=== PATIENT | female | born 1965 | race American Indian/Alaskan Native ===

== ENCOUNTER 2016-04-15 09:57 | Emergency (ER) | payer BC ==
[2016-04-15 10:23] VITALS: BP 150/78
--- NOTE | 2016-04-15 10:55 | Emergency Department Report ---
Chief Complaint: Abdominal Pain Stated Complaint: MUSCLE SPASMS Time Seen by Provider: 04/15/16 10:50 - HPI History of Present Illness: 51-year-old female comes in for complaint of muscle spasms in her right rib cage area since last night. Patient reports that she was seen by a clinician for [employer] issues and as she got home late down he doesn't know what happened but she woke up with these muscle spasms in her right rib cage. She feels that it was gas but this is not moving so she is here to be evaluated. Patient does report it is worse when she inhales and better with exhaling. Nausea trauma to her her right side. She denies any chest pain. - Exam Vital Signs: Vital Signs 04/15/16 10:18 Temperature 99.2 F Pulse Rate 87 Respiratory 24 Rate Blood Pressure 150/78 O2 Sat by Pulse 96 Oximetry Physical Exam: He is alert and 3 cardiovascular S1-S2 noted a murmur. Abdomen soft nontender negative Brown sign. Respiratory to difficult for her to take a deep breath deferred. MSE screening note: Focused history and physical exam performed. Due to findings the following was ordered: CBC BMP troponin lipase evaluate the main ER ED Disposition for MSE Condition: Stable Instructions: Abdominal Pain (ED)
[2016-04-15 11:20] LABS: Hematocrit 40.2 % (30.3-42.9); Hemoglobin 12.5 gm/dl (10.1-14.3); Mean Corpuscular HGB Conc 31 % (30-34); Mean Corpuscular Volume 82 fl (79-97); Platelet Count 231 K/mm3 (140-440); Red Blood Count 4.88 M/mm3 (3.65-5.03); Red Cell Distribution Width 17.9 % (13.2-15.2); White Blood Count 9.1 K/mm3 (4.5-11.0)
[2016-04-15 11:25] LABS: Mean Corpuscular Hemoglobin 26 pg (28-32)
[2016-04-15 11:35] LABS: Blood Urea Nitrogen 10 mg/dL (7-17); Carbon Dioxide 26 mmol/L (22-30); Chloride 98.4 mmol/L (98-107); Glucose 114 mg/dL (65-100); Lipase 10 units/L (13-60); Potassium 4.1 mmol/L (3.6-5.0); Sodium 138 mmol/L (137-145)
[2016-04-15 11:40] LABS: Anion Gap 18 mmol/L
--- NOTE | 2016-04-15 12:12 | XRay Report ---
ROUTINE CHEST, TWO VIEWS: HISTORY: chest pain. There is poor inspiration. Mild segmental atelectasis is suspected at the left lung base. Otherwise, the lungs are clear. No evidence for infiltrate, mass, pleural effusion or pneumothorax. Normal heart and mediastinal structures. Normal bony thorax. IMPRESSION: Poor inspiration with segmental atelectasis of the left lung base. Otherwise, unremarkable chest films.
[2016-04-15 12:27] LABS: Bacteria,Urine 1+ /HPF (Negative); Bilirubin,Urine NEG (Negative); Blood,Urine MOD (Negative); Ketones,Urine NEG (Negative); Leukocyte Esterase,Urine TR (Negative); Mucus,Urine 2+ /HPF; Nitrite,Urine NEG (Negative); Urobilinogen,Urine < 2.0 mg/dL (<2.0)
--- NOTE | 2016-04-18 01:19 | ED Elopement Review ---
ED Pt Elopement review - Results review Lab results: Laboratory Tests 04/15/16 04/15/16 04/15/16 11:10 11:10 Unknown WBC 9.1 RBC 4.88 Hgb 12.5 Hct 40.2 MCV 82 MCH 26 L MCHC 31 RDW 17.9 H Plt Count 231 Sodium 138 Potassium 4.1 Chloride 98.4 Carbon Dioxide 26 Anion Gap 18 BUN 10 Creatinine 1.0 Estimated GFR > 60 BUN/Creatinine Ratio 10.00 Glucose 114 H Calcium 9.0 Lipase 10 L Urine Color Hannah Urine Turbidity Slightly-cloudy Urine pH 5.0 Ur Specific [place] 1.028 Urine Protein 100 mg/dl Urine Glucose (UA) Neg Urine Ketones Neg Urine Blood Mod Urine Nitrite Neg Urine Bilirubin Neg Urine Urobilinogen < 2.0 Ur Leukocyte Esterase Tr Urine WBC (Auto) 8.0 H Urine RBC (Auto) 20.0 U Epithel Cells (Auto) 19.0 H Urine Bacteria (Auto) 1+ Urine Mucus 2+ - Call Back decision Pt Call Back Decision: No action required
== END 2016-04-15 19:50 | disposition left against medical advice (07) ==
LOC: ED 09:57
DX: M62.838 Other muscle spasm (principal); Z53.21 Procedure and treatment not carried out due to patient leaving prior to being seen by health care provider
CPT/HCPCS: 36415; 71020; 80048; 81001; 83690; 85027; 93005; 93010

== ENCOUNTER 2016-10-20 11:09 | Outpatient (CLI) | payer BC ==
--- NOTE | 2016-10-20 16:29 | Cat Scan Report ---
CT CHEST, ABDOMEN AND PELVIS WITH CONTRAST: 10/20/16 CLINICAL: Carcinoid followup. COMPARISON: 05/20/16 TECHNIQUE: Volumetric acquisition and 1.25 millimeter scan reconstructions after the uneventful intravenous injection of 100 cc of Omnipaque 300. Consent was obtained prior to the administration of the contrast. Oral contrast was also given. FINDINGS: Chest: The lungs are clear except for a band of right lower lobe subsegmental atelectasis. No airspace disease or pleural effusion. No pulmonary nodule or mass. Normal aorta, heart and pulmonary arteries. Normal esophagus and trachea. No mediastinal or hilar lymphadenopathy.No axillary or supraclavicular lymphadenopathy. Abdomen: Too numerous to count hypodense hepatic masses have decreased in size compared to the prior exam and demonstrate less peripheral enhancement. The gallbladder and bile ducts are normal. Normal stomach, duodenum, pancreas and spleen. Stable mild right hydronephrosis and right hilar ureter. The left renal collecting system and ureter are normal. The kidneys are normal except for a 7 cm left upper pole renal cyst. Normal aorta and inferior vena cava. An irregular central mesenteric mass is quite subtle and is unchanged compared to the last exam. The mass is at the root of the small bowel mesentery and measures approximately 4.6 x 2.2 x 3.9 cm and is best appreciated on the coronal reformat.No ascites.Normal small bowel. Normal ascending, transverse and descending colon. Normal appendix. Pelvis: Normal urinary bladder, uterus and rectum. The previously described right perirectal lymph node is smaller and measures 1.7 x 1.4 x 1.3 cm. Normal ovaries. No adnexal mass or free fluid. Mild sigmoid diverticulosis and no signs of diverticulitis. Bone windows demonstrate no suspicious bone lesion. IMPRESSION:1. Right lower lobe subsegmental atelectasis and otherwise normal chest. 2. Decreased size and decreased enhancement of too numerous to count hepatic masses. 3. Stable 4.6 cm mass at the root of the small bowel mesentery. 4. A smaller right perirectal lymph node.
== END 2016-10-20 11:10 | disposition home or self-care (01) ==
LOC: SPVIMAG 11:09
PROVIDERS: ATTEND Internal Medicine Hematology & Oncology
DX: C80.1 Malignant (primary) neoplasm, unspecified (principal); N28.1 Cyst of kidney, acquired; K57.30 Diverticulosis of large intestine without perforation or abscess without bleeding; K76.89 Other specified diseases of liver; J98.11 Atelectasis; N13.30 Unspecified hydronephrosis; K63.89 Other specified diseases of intestine; Z87.891 Personal history of nicotine dependence
CPT/HCPCS: 71260; 74177; Q9967

== ENCOUNTER 2016-12-09 10:12 | Outpatient (CLI) | payer BC ==
--- NOTE | 2016-12-09 11:04 | Mammography Report ---
BILATERAL MAMMOGRAM: FINDINGS: There are scattered fibroglandular densities (approximately 25%-50% glandular). No mass, distortion, suspicious calcification, or skin change is seen. CAD was utilized. IMPRESSION: Negative mammogram. There is no mammographic evidence of malignancy. RECOMMENDATION: Follow-up per ACS guidelines. BI-RADS CATEGORY: 1 = Negative ACR BI-RADS MAMMOGRAPHIC CODES: 0 = Needs additional imaging evaluation; 1 = Negative; 2 = Benign; 3 = Probably benign; 4 = Suspicious; 5 = Malignant; 6 = Known biopsy-proven malignancy COMMENT: 1. Dense breast tissue, i.e., adenosis, fibrocystic changes, etc., may obscure an underlying neoplasm. 2. Approximately 10% of cancers are not detected with mammography. 3. A negative mammography report should not delay biopsy if a clinically suspicious mass is present. COMMENT: Patient follow-up letters are generated in [employer].
== END 2016-12-09 10:13 | disposition home or self-care (01) ==
LOC: MAMMO 10:12
PROVIDERS: ATTEND Internal Medicine Hematology & Oncology
DX: Z12.31 Encounter for screening mammogram for malignant neoplasm of breast (principal); I11.0 Hypertensive heart disease with heart failure; I50.9 Heart failure, unspecified
CPT/HCPCS: 77067; G0202

== ENCOUNTER 2017-01-06 08:33 | Outpatient (CLI) | payer BC ==
--- NOTE | 2017-01-06 16:15 | Cat Scan Report ---
CT CHEST, ABDOMEN AND PELVIS WITHOUT AND WITH CONTRAST: 01/06/17 08:33:00 CLINICAL: Carcinoid followup. COMPARISON: 10/20/16 TECHNIQUE: Volumetric acquisition and 1.25 millimeter scan reconstructions after the uneventful intravenous injection of cc of Omnipaque 300. Consent was obtained prior to the administration of the contrast. Oral contrast was given. FINDINGS: Chest: The lungs are clear. No pulmonary nodule or mass. Normal aorta, heart and pulmonary arteries. Normal esophagus and trachea. No mediastinal or hilar lymphadenopathy.No axillary or supraclavicular lymphadenopathy. Abdomen: Too numerous count hypodense right and left hepatic masses are stable and demonstrate no abnormal enhancement. No new lesions. Mass at the root of the small bowel mesentery is slightly smaller and measures 4.2 x 2.4 cm. No new mass. Normal gallbladder and bile ducts. Normal stomach, duodenum, pancreas and spleen. The renal collection systems and ureters are normal. Stable 7 cm left upper pole renal cyst. Normal aorta and inferior vena cava. No lymphadenopathy.No ascites.Normal small bowel. Normal ascending, transverse and descending colon. Pelvis: Normal urinary bladder and rectum.Normal uterus. Stable 1.7 x 1.4 cm right perirectal lymph node.. Bone windows demonstrate no suspicious bone lesion. IMPRESSION:1. Normal chest. 2. Stable hepatic lesions and no new hepatic lesions. 3. A slightly smaller mesenteric mass. 4. Stable right perirectal lymph node. 5. No new mass or lymphadenopathy.
== END 2017-01-06 08:34 | disposition home or self-care (01) ==
LOC: SPVIMAG 08:33
PROVIDERS: ATTEND Internal Medicine Hematology & Oncology
DX: C80.1 Malignant (primary) neoplasm, unspecified (principal); K76.89 Other specified diseases of liver; N28.1 Cyst of kidney, acquired
CPT/HCPCS: 71270; 74178; Q9967

== ENCOUNTER 2017-05-05 09:42 | Outpatient (CLI) | payer BC ==
[2017-05-05 12:05] LABS: Blood Urea Nitrogen 9 mg/dL (7-17)
--- NOTE | 2017-05-06 08:03 | Cat Scan Report ---
CT CHEST, ABDOMEN AND PELVIS WITH CONTRAST INDICATION: Metastatic carcinoid. COMPARISON: 01/06/[address] FINDINGS: Chest, abdomen and pelvis CT performed following oral contrast and intravenous administration of 100 cc of Omnipaque 300. CHEST: Stable, top normal heart size. No effusions or size significant adenopathy. Patent central airway. Grossly unremarkable great vessels and imaged thyroid. Coronary and mild aortic arch calcifications. Mild increased bibasilar atelectasis, right greater than left. No suspicious lung masses. Mild nonspecific distal esophageal wall prominence/thickening, not excluded for gastroesophageal reflux and/or hiatal hernia, amongst others. ABDOMEN: Liver again heterogeneous with diffuse metastases, more so the right hepatic lobe, including an approximately 4.1 x 2.3 cm right hepatic irregular hypodense area, axial series 2, image 357. No biliary dilatation. Approximately 6.7 cm partly exophytic left renal cyst again slightly displaces the left adrenal while the pancreatic tail drapes over it. Otherwise unremarkable pancreas, adrenals, spleen, gallbladder and the kidneys. Nonaneurysmal abdominal aorta with atherosclerotic aortoiliac calcifications. Grossly unremarkable IVC, though few retroperitoneal/paracaval lymph nodes noted as approximately 1 cm, axial image 444, series 2, previously the same. Largest chin hepatis lymph node again is approximately 3 x 2.2 cm, axial image 388, series 2. Elongated/bilobed mesenteric root mass is approximately 4 x 2.2 cm, axial image 49, series 2 and approximately 5.3 cm craniocaudal, coronal image 76, series 203. Few other small, subcentimeter mesenteric lymph nodes also noted. No ascites. Opacified GI tract nonobstructive. PELVIS: Mild rectosigmoid stool. Approximately 2 x 1.4 cm right pararectal lymph node mass is stable, axial image 603, series 2. Few small pelvic phleboliths. Grossly unremarkable uterus, adnexa/ovaries and the urinary bladder. No free fluid or significant adenopathy. Multilevel spinal degenerative changes as mid to lower thoracic and lumbar degenerative spurring and some disc degeneration. Right more than left shoulder degenerative changes as well. CONCLUSION: 1. Mild increased bibasilar atelectasis and few other incidental chest findings without CT evidence of intrathoracic metastatic disease. 2. Stable diffuse hepatic heterogeneity/metastatic involvement. 3. Stable mesenteric root mass/carcinoid tumor and chin hepatis, retroperitoneal and right pararectal lymphadenopathy, as described. 4. Various other incidental findings, including stable large left upper renal cyst and various bony degenerative changes, amongst others. Thank you for the opportunity to participate in this patient's care.
== END 2017-05-05 09:43 | disposition home or self-care (01) ==
LOC: CT 09:42 → SPVIMAG 09:42 → CT 09:43
PROVIDERS: ATTEND Internal Medicine Hematology & Oncology
DX: C7A.8 Other malignant neuroendocrine tumors (principal); C80.1 Malignant (primary) neoplasm, unspecified; K76.89 Other specified diseases of liver; I70.0 Atherosclerosis of aorta; I25.10 Atherosclerotic heart disease of native coronary artery without angina pectoris; J98.11 Atelectasis; N28.1 Cyst of kidney, acquired; I87.8 Other specified disorders of veins; M47.894 Other spondylosis, thoracic region; M53.86 Other specified dorsopathies, lumbar region; M19.011 Primary osteoarthritis, right shoulder; M19.012 Primary osteoarthritis, left shoulder; R59.1 Generalized enlarged lymph nodes
CPT/HCPCS: 36415; 71260; 74177; 82565; 84520; Q9967

== ENCOUNTER 2017-07-09 09:27 | Outpatient (CLI) | payer BC ==
[2017-07-09 10:00] LABS: Hematocrit 42.6 % (30.3-42.9); Hemoglobin 13.9 gm/dl (10.1-14.3); Mean Corpuscular HGB Conc 33 % (30-34); Mean Corpuscular Hemoglobin 27 pg (28-32); Mean Corpuscular Volume 83 fl (79-97); Platelet Count 245 K/mm3 (140-440); Red Blood Count 5.16 M/mm3 (3.65-5.03); Red Cell Distribution Width 18.3 % (13.2-15.2)
[2017-07-09 10:05] LABS: Alanine Aminotransferase 14 units/L (7-56); Albumin 3.3 g/dL (3.9-5); BUN/Creatinine Ratio 13; Blood Urea Nitrogen 12 mg/dL (7-17); Calcium 8.7 mg/dL (8.4-10.2); Hemolysis Index 19
[2017-07-09 10:39] LABS: Bilirubin,Urine NEG (Negative); Blood,Urine MOD (Negative); Color,Urine Yellow (Yellow); Mucus,Urine FEW /HPF; Urobilinogen,Urine < 2.0 mg/dL (<2.0)
== END 2017-07-09 09:28 | disposition home or self-care (01) ==
LOC: LAB 09:27
PROVIDERS: ATTEND Internal Medicine Nephrology
DX: N28.1 Cyst of kidney, acquired (principal); I11.0 Hypertensive heart disease with heart failure; I50.9 Heart failure, unspecified; E78.00 Pure hypercholesterolemia, unspecified; Z87.891 Personal history of nicotine dependence; Z79.899 Other long term (current) drug therapy
CPT/HCPCS: 36415; 80053; 81001; 85027

== ENCOUNTER 2017-08-05 10:01 | Outpatient (CLI) | payer BC ==
[2017-08-05 11:46] LABS: BUN/Creatinine Ratio 12; Blood Urea Nitrogen 12 mg/dL (7-17); Calcium 8.8 mg/dL (8.4-10.2); Hemolysis Index 19
== END 2017-08-05 10:02 | disposition home or self-care (01) ==
LOC: LAB 10:01
PROVIDERS: ATTEND Internal Medicine Nephrology
DX: N28.1 Cyst of kidney, acquired (principal); I11.0 Hypertensive heart disease with heart failure; I50.9 Heart failure, unspecified; E78.00 Pure hypercholesterolemia, unspecified; K21.9 Gastro-esophageal reflux disease without esophagitis; Z87.891 Personal history of nicotine dependence
CPT/HCPCS: 36415; 80048; 86021; 86038

== ENCOUNTER 2017-09-04 10:03 | Outpatient (CLI) | payer BC ==
[2017-09-04 10:51] LABS: Blood Urea Nitrogen 14 mg/dL (7-17)
--- NOTE | 2017-09-06 11:18 | Cat Scan Report ---
CT CHEST, ABDOMEN AND PELVIS WITH CONTRAST: 09/04/17 10:03:00 CLINICAL: Followup metastatic carcinoid. COMPARISON: 05/05/17 TECHNIQUE: Volumetric acquisition and 1.25 millimeter scan reconstructions after the uneventful intravenous injection of 100 cc of Omnipaque 300. Consent was obtained prior to the administration of the contrast. Oral contrast was also given. FINDINGS: Chest: No pulmonary nodule or mass. Stable right lower lobe parenchymal lung scar. No pleural effusion. Normal aorta, heart and pulmonary arteries. Normal esophagus and trachea. No mediastinal or hilar lymphadenopathy.No axillary or supraclavicular lymphadenopathy. Abdomen: A lymph node at the diaphragm measures 1.5 x 1.1 cm and is unchanged compared to previous exams. The liver is diffusely enlarged with too numerous to count hypodense masses which are not significantly changed compared to the last exam normal gallbladder and bile ducts. Normal stomach, duodenum, pancreas and spleen. A 7.0 cm left upper pole renal cyst and otherwise normal kidneys. Normal adrenal glands. Normal aorta and inferior vena cava. A stable chin hepatis lymph node measures 2.7 x 2.5 cm. The previously identified irregular mass of the mesenteric root is not significantly changed and measures approximately 4.1 x 2.6 x 0.9 cm. No new abdominal lymphadenopathy.No ascites.Normal small bowel. Normal ascending, transverse and descending colon. A normal relatively small appendix. Pelvis: Normal uterus, urinary bladder and rectum.Ovaries are small and unremarkable. No adnexal mass or free fluid. Bone windows demonstrate no suspicious bone lesion. IMPRESSION:Stable disease with no new findings.
== END 2017-09-04 10:04 | disposition home or self-care (01) ==
LOC: CT 10:03
PROVIDERS: ATTEND Internal Medicine Hematology & Oncology
DX: K76.89 Other specified diseases of liver (principal); C7A.8 Other malignant neuroendocrine tumors; C80.1 Malignant (primary) neoplasm, unspecified; R10.30 Lower abdominal pain, unspecified; Z87.891 Personal history of nicotine dependence
CPT/HCPCS: 36415; 71260; 74177; 82565; 84520; Q9967

== ENCOUNTER 2017-12-24 10:32 | Outpatient (CLI) | payer BC ==
[2017-12-24 11:18] LABS: Blood Urea Nitrogen 9 mg/dL (7-17)
--- NOTE | 2017-12-25 08:10 | Cat Scan Report ---
CT chest abdomen and pelvis with contrast: Followup malignancy with metastatic disease. Following intravenous contrast transverse images obtained from the thoracic inlet to the ischium. Coronal and sagittal 2-D reformatted images are included. Comparison is made to the prior examination of September 04, 2017. No hilar, mediastinal, or axillary adenopathy. Bilateral linear areas of scarring are identified in the lower lobes. These findings are unchanged. No new findings identified. Diffuse hypodensities are scattered in the liver predominantly in the right lobe. Most of these remain generally unchanged. On image 180 there is a 2.2 cm hypodensity is not clearly identified on the prior exam. On image 213 there is a 14 x 38 mm hypodensity also not clearly visualized on prior exams. The lymph node in the chin hepatis has remained relatively stable currently measuring 16 mm. The mesenteric mass anterior to the aortic bifurcation is also generally stable measuring roughly 4 cm in maximum dimension. No new masses and no new adenopathy identified. Stable left renal cyst. Impressions: 1. Stable chest findings. No pulmonary metastases noted. 2. 2 new liver lesions identified otherwise generally diffuse stable metastatic disease in the liver. 3. Stable chin hepatis lymph node and mesenteric mass.
== END 2017-12-24 10:33 | disposition home or self-care (01) ==
LOC: CT 10:32
PROVIDERS: ATTEND Internal Medicine Hematology & Oncology
DX: C80.1 Malignant (primary) neoplasm, unspecified (principal); K76.89 Other specified diseases of liver; R10.30 Lower abdominal pain, unspecified; K21.9 Gastro-esophageal reflux disease without esophagitis; I10 Essential (primary) hypertension; E66.9 Obesity, unspecified; M19.90 Unspecified osteoarthritis, unspecified site; E78.00 Pure hypercholesterolemia, unspecified; Z87.891 Personal history of nicotine dependence
CPT/HCPCS: 36415; 71260; 74177; 82565; 84520; Q9967